=== PATIENT | female | born 1945 | race African-American/Black ===

== ENCOUNTER 2019-11-26 10:56 | Observation (INO) ==
[2019-11-26] MEDS ORDERED: NITROGLYCERIN 2% OINT 1 INCH/GM PACK TOP STA (11:26)
[2019-11-26] MEDS ORDERED: METOPROLOL TARTRATE 5 MG/5 ML VIAL IV STA (11:26)
[2019-11-26 11:31] LABS: Basophils # 0.1 10*3/uL (0.0-0.2); Basophils % 1.4 % (0.0-0.8); Eosinophils # 0.2 10*3/uL (0.0-0.87); Eosinophils % 2.8 % (0.00-10.9); Hematocrit 34.5 VOL% (35.7-47.0); Hemoglobin 10.7 GM/DL (12.0-16.0); Immature Granulocytes % 0.2 %; Immature Granulocytes Absolute 0.01 #; Lymphocytes # 1.4 10*3/uL (1.4-4.0); Lymphocytes % 21.2 % (21.3-54.2); Mean Corpuscular Volume 87.1 FL (87-102); Monocytes % 7.1 % (1.7-12.7); Neutrophils % 67.3 % (38.7-73.9); Platelet Count 371 T/CUMM (130-400); Red Blood Count 3.96 MC/CUMM (3.8-5.5); Red Cell Distribution Width 15.9 % (9.3-17.3); White Blood Count 6.5 T/CUMM (4-12)
[2019-11-26 11:51] LABS: Alanine Aminotransferase 15 U/L (13-56); Albumin 3.7 G/DL (3.4-5.0); Alkaline Phosphatase 169 U/L (45-117); Aspartate Amino Transferase 10 U/L (0-37); Bilirubin,Total < 0.39 MG/DL (0.2-1.0); Blood Urea Nitrogen 13 MG/DL (7-18); Calcium 9.3 MG/DL (8.5-10.1); Estimated Glom Filtration Rate 65 ML/MIN; Glucose 122 MG/DL (74-106); Osmolality,Calculated 286.8 MOS/KG (273-304); Total Protein 6.8 G/DL (6.4-8.3)
[2019-11-26] MEDS ORDERED: ONDANSETRON 4 MG/2 ML VIAL IV PRN (13:29)
[2019-11-26] MEDS ORDERED: GLUCAGON 1 MG VIAL IM PRN (13:29)
[2019-11-26] MEDS ORDERED: ACETAMINOPHEN 325 MG TABLET PO PRN (13:29)
[2019-11-26] MEDS ORDERED: DEXTROSE 50% 25 GM/50 ML VIAL IV PRN (13:29)
[2019-11-26] MEDS ORDERED: ENOXAPARIN 40 MG/0.4 ML SYRINGE SUBCUT SCH (13:30)
[2019-11-26 14:48] LABS: Risk Ratio 5.03; Thyroid Stimulating Hormone 1.29 uIU/ml (0.358-3.74); VLDL CHOLESTEROL 40.4 MG/DL
[2019-11-26] MEDS ORDERED: INFLUENZA VIRUS VACCINE 0.5 ML SYRINGE IM ONE (16:03)
[2019-11-26] MEDS: GABAPENTIN 100 MG CAPSULE PO SCH ×2 (17:12→21:31)
[2019-11-26] MEDS: INSULIN REGULAR 100 UNIT/ML SUBCUT SCH ×2 (17:43→21:30)
[2019-11-26] MEDS: MORPHINE 4 MG/1 ML VIAL IV PRN (20:10)
[2019-11-26] MEDS ORDERED: INSULIN GLARGINE 100 UNIT/ML SUBCUT SCH (21:00)
[2019-11-26] MEDS: metFORMIN 500 MG TABLET PO SCH (21:31)
[2019-11-26] MEDS: TICAGRELOR 90 MG TABLET PO SCH (21:31)
[2019-11-27] MEDS: MORPHINE 4 MG/1 ML VIAL IV PRN (01:49)
[2019-11-27 05:42] LABS: Basophils # 0.1 10*3/uL (0.0-0.2); Basophils % 1.6 % (0.0-0.8); Eosinophils # 0.2 10*3/uL (0.0-0.87); Eosinophils % 2.9 % (0.00-10.9); Hematocrit 31.3 VOL% (35.7-47.0); Immature Granulocytes % 0.5 %; Immature Granulocytes Absolute 0.03 #; Lymphocytes # 0.7 10*3/uL (1.4-4.0); Lymphocytes % 11.9 % (21.3-54.2); Mean Corpuscular HGB Conc 31.9 GM/DL (32-36); Mean Corpuscular Volume 86.5 FL (87-102); Mean Platelet Volume 9.9 FL (9.6-12.0); Monocytes % 7.5 % (1.7-12.7); Neutrophils % 75.6 % (38.7-73.9); Platelet Count 335 T/CUMM (130-400); Red Blood Count 3.62 MC/CUMM (3.8-5.5); Red Cell Distribution Width 15.9 % (9.3-17.3); White Blood Count 6.1 T/CUMM (4-12)
[2019-11-27 06:01] LABS: Albumin 3.1 G/DL (3.4-5.0); Bilirubin,Total 0.5 MG/DL (0.2-1.0); Calcium 9.5 MG/DL (8.5-10.1); Osmolality,Calculated 283.3 MOS/KG (273-304); Total Protein 6.5 G/DL (6.4-8.3)
[2019-11-27 08:33] VITALS: BP 122/74
[2019-11-27] MEDS ORDERED: CETIRIZINE 10 MG TABLET PO SCH (09:00)
[2019-11-27] MEDS ORDERED: ASPIRIN EC 81 MG TABLET PO SCH (09:00)
[2019-11-27] MEDS ORDERED: PANTOPRAZOLE 40 MG TABLET PO SCH (09:00)
[2019-11-27] MEDS ORDERED: LUBIPROSTONE 24 MCG CAPSULE PO SCH (09:00)
[2019-11-27] MEDS ORDERED: FERROUS SULFATE 325 MG TABLET PO SCH (09:00)
[2019-11-27] MEDS ORDERED: METOPROLOL SUCCINATE XL 25 MG TABLET PO SCH (09:00)
[2019-11-27] MEDS ORDERED: FUROSEMIDE 20 MG TABLET PO SCH (09:00)
[2019-11-27] MEDS ORDERED: OMEGA 3 ACID ETHYL ESTERS 1 GM CAPSULE PO SCH (09:00)
[2019-11-27] MEDS ORDERED: LOSARTAN 50 MG TABLET PO SCH (09:00)
[2019-11-27] MEDS ORDERED: POTASSIUM CHLORIDE 10 MEQ TABLET PO SCH (09:00)
[2019-11-27] MEDS: INSULIN REGULAR 100 UNIT/ML SUBCUT SCH (09:31)
[2019-11-27] MEDS: metFORMIN 500 MG TABLET PO SCH (09:32)
[2019-11-27] MEDS: GABAPENTIN 100 MG CAPSULE PO SCH (09:33)
[2019-11-27] MEDS: TICAGRELOR 90 MG TABLET PO SCH (09:34)
[2019-11-27] MEDS ORDERED: ATORVASTATIN 40 MG TABLET PO SCH (21:00)
== END 2019-11-27 11:40 | disposition home health service (06) ==
LOC: N.EDINP 10:56 → N.ED 10:56 → N.TELEN 14:27
PROVIDERS: ADMIT Internal Medicine; ATTEND Internal Medicine

== ENCOUNTER 2020-04-08 12:41 | Inpatient (IN) ==
[2020-04-08] MEDS ORDERED: PANTOPRAZOLE 40 MG VIAL IV STA (14:22)
[2020-04-08 15:10] LABS: Basophils # 0.1 10*3/uL (0.0-0.2); Basophils % 1.3 % (0.0-0.8); Eosinophils # 0.1 10*3/uL (0.0-0.87); Eosinophils % 1.8 % (0.00-10.9); Hematocrit 29.5 VOL% (35.7-47.0); Hemoglobin 8.7 GM/DL (12.0-16.0); Immature Granulocytes % 0.3 %; Immature Granulocytes Absolute 0.02 #; Lymphocytes # 1.6 10*3/uL (1.4-4.0); Lymphocytes % 20.4 % (21.3-54.2); Mean Corpuscular HGB Conc 29.5 GM/DL (32-36); Mean Platelet Volume 9.9 FL (9.6-12.0); Monocytes % 8.5 % (1.7-12.7); Neutrophils % 67.7 % (38.7-73.9); Platelet Count 372 T/CUMM (130-400); Red Blood Count 4.04 MC/CUMM (3.8-5.5); Red Cell Distribution Width 19.9 % (9.3-17.3); White Blood Count 7.8 T/CUMM (4-12)
[2020-04-08 15:25] LABS: PT Patient Result 10.8 SECS (9.8-11.9)
[2020-04-08 15:33] LABS: Albumin 3.9 G/DL (3.4-5.0); Bilirubin,Total 0.4 MG/DL (0.2-1.0); Calcium 9.5 MG/DL (8.5-10.1); Osmolality,Calculated 287.1 MOS/KG (273-304); Potassium 4.2 MMOL/L (3.5-5.1); Total Protein 7.6 G/DL (6.4-8.3)
[2020-04-08] MEDS ORDERED: DOCUSATE SODIUM 100 MG CAPSULE PO PRN (17:03)
[2020-04-08] MEDS ORDERED: ONDANSETRON 4 MG/2 ML VIAL IV PRN (17:03)
[2020-04-08] MEDS ORDERED: hydrALAZINE 20 MG/1 ML VIAL IV PRN (17:03)
[2020-04-08] MEDS ORDERED: NICOTINE 21 MG/24 HR PATCH TRANSDERM PRN (17:03)
[2020-04-08] MEDS ORDERED: DEXTROSE 50% 25 GM/50 ML VIAL IV PRN (17:03)
[2020-04-08] MEDS ORDERED: GLUCAGON 1 MG VIAL IM PRN (17:03)
[2020-04-08] MEDS ORDERED: MORPHINE 4 MG/1 ML VIAL IV PRN (17:42)
[2020-04-08 19:01] LABS: % Iron Saturation 8.1 % (18-50); Ferritin 9.3 ng/ml (8-252)
[2020-04-08 19:37] LABS: Vitamin B12 420 PG/ML (211-911)
[2020-04-08 20:35] LABS: Basophils # 0.1 10*3/uL (0.0-0.2); Basophils % 1.4 % (0.0-0.8); Eosinophils # 0.2 10*3/uL (0.0-0.87); Eosinophils % 2.7 % (0.00-10.9); Hematocrit 28.3 VOL% (35.7-47.0); Hemoglobin 8.1 GM/DL (12.0-16.0); Immature Granulocytes % 0.1 %; Immature Granulocytes Absolute 0.01 #; Lymphocytes # 1.8 10*3/uL (1.4-4.0); Lymphocytes % 26.3 % (21.3-54.2); Mean Corpuscular HGB Conc 28.6 GM/DL (32-36); Mean Corpuscular Volume 73.1 FL (87-102); Mean Platelet Volume 9.7 FL (9.6-12.0); Monocytes % 8.1 % (1.7-12.7); Neutrophils % 61.4 % (38.7-73.9); Platelet Count 355 T/CUMM (130-400); Red Blood Count 3.87 MC/CUMM (3.8-5.5)
[2020-04-08 21:34] LABS: Sedimentation Rate-Westergren 30 MM/HR (0-30)
[2020-04-08] MEDS: INSULIN LISPRO 100 UNIT/ML SUBCUT SCH (22:05)
[2020-04-08] MEDS: PANTOPRAZOLE 40 MG VIAL IV SCH (22:05)
[2020-04-08] MEDS: SODIUM CHLORIDE 0.9% 1,000 ML IV SCH (22:06)
[2020-04-08] MEDS: MICONAZOLE 2% CREAM 57 GM TUBE TOP SCH (22:06)
[2020-04-09 04:47] LABS: Basophils # 0.1 10*3/uL (0.0-0.2); Basophils % 1.7 % (0.0-0.8); Eosinophils # 0.2 10*3/uL (0.0-0.87); Eosinophils % 3.8 % (0.00-10.9); Hemoglobin 7.8 GM/DL (12.0-16.0); Immature Granulocytes % 0.3 %; Immature Granulocytes Absolute 0.02 #; Lymphocytes # 1.7 10*3/uL (1.4-4.0); Mean Corpuscular HGB Conc 28.9 GM/DL (32-36); Mean Corpuscular Volume 73.6 FL (87-102); Mean Platelet Volume 10.2 FL (9.6-12.0); Monocytes % 10.4 % (1.7-12.7); Neutrophils % 54.8 % (38.7-73.9); Platelet Count 322 T/CUMM (130-400); Red Blood Count 3.67 MC/CUMM (3.8-5.5); Red Cell Distribution Width 19.8 % (9.3-17.3); White Blood Count 5.9 T/CUMM (4-12)
[2020-04-09 05:05] LABS: Calcium 9.1 MG/DL (8.5-10.1); Osmolality,Calculated 283.4 MOS/KG (273-304); Potassium 4.2 MMOL/L (3.5-5.1)
[2020-04-09 05:08] LABS: Hypochromasia 1+
[2020-04-09 05:09] LABS: Microcytosis 1+; Platelet Estimate Normal; Target Cells Slight
[2020-04-09] MEDS ORDERED: MAGNESIUM SULF RIDER 2 GM in PREMIX 1 EACH IV ONE (07:42)
[2020-04-09] MEDS: PANTOPRAZOLE 40 MG VIAL IV SCH ×2 (08:06→20:32)
[2020-04-09] MEDS: INSULIN LISPRO 100 UNIT/ML SUBCUT SCH ×4 (08:12→20:33)
[2020-04-09 08:46] LABS: Bacteria,Urine Occasional /HPF (Few); Bilirubin,Urine Negative (Negative); Blood, Urine Negative (Negative); Glucose,Urine (UA) Negative (Negative); Ketones,Urine Negative (Negative); Nitrite,Urine Negative (Negative); Protein,Urine Negative; RBC,Urine 1 /HPF (0-4); Squamous Epithelial Cell,Urine Occasional /HPF (0-10); Urine Appearance CLEAR (Clear); Urine Color Yellow (Yellow); Urine Specific Gravity 1.012 (1.001-1.035); Urine Urobilinogen < 2.0 EU/DL (0.2-1.0); WBC,Urine <1 /HPF (0-6)
[2020-04-09] MEDS ORDERED: SODIUM CHLORIDE 0.9% 1,000 ML IV PRN (09:17)
[2020-04-09 11:05] LABS: Hemoglobin A1 (Alkaline) 68.8 % (96.5-98.5); Hemoglobin A2 (Alkaline) 2.8 % (1.5-3.5)
[2020-04-09 11:23] LABS: Hematocrit 28.7 VOL% (35.7-47.0); Hemoglobin 8.3 GM/DL (12.0-16.0)
[2020-04-09 12:08] LABS: Hemoglobin S (Alkaline) 28.4 %
[2020-04-09] MEDS: SODIUM CHLORIDE 0.9% 1,000 ML IV SCH ×2 (12:43→20:32)
[2020-04-09] MEDS: MICONAZOLE 2% CREAM 57 GM TUBE TOP SCH ×2 (12:43→20:32)
[2020-04-09 15:54] LABS: Hematocrit 25.6 VOL% (35.7-47.0); Hemoglobin 7.6 GM/DL (12.0-16.0)
[2020-04-09 21:51] LABS: Hematocrit 25.7 VOL% (35.7-47.0); Hemoglobin 7.4 GM/DL (12.0-16.0)
[2020-04-10 06:43] LABS: Basophils # 0.1 10*3/uL (0.0-0.2); Basophils % 1.7 % (0.0-0.8); Eosinophils # 0.2 10*3/uL (0.0-0.87); Eosinophils % 4.4 % (0.00-10.9); Hemoglobin 7.7 GM/DL (12.0-16.0); Immature Granulocytes % 0.4 %; Immature Granulocytes Absolute 0.02 #; Lymphocytes # 1.4 10*3/uL (1.4-4.0); Mean Corpuscular HGB Conc 29.6 GM/DL (32-36); Mean Corpuscular Volume 73.4 FL (87-102); Mean Platelet Volume 9.6 FL (9.6-12.0); Monocytes % 10.2 % (1.7-12.7); Neutrophils % 53.3 % (38.7-73.9); Platelet Count 321 T/CUMM (130-400); Red Blood Count 3.54 MC/CUMM (3.8-5.5); Red Cell Distribution Width 19.8 % (9.3-17.3); White Blood Count 4.8 T/CUMM (4-12)
[2020-04-10 06:52] LABS: Calcium 9.6 MG/DL (8.5-10.1); Osmolality,Calculated 279.4 MOS/KG (273-304); Potassium 4.1 MMOL/L (3.5-5.1)
[2020-04-10] MEDS ORDERED: MAGNESIUM SULF RIDER 2 GM in PREMIX 1 EACH IV ONE (06:59)
[2020-04-10 07:02] LABS: Hypochromasia 1+; Microcytosis 1+; Platelet Estimate Adequate
[2020-04-10] MEDS ORDERED: LACTATED RINGERS 1,000 ML IV SCH (08:00)
[2020-04-10] MEDS: INSULIN LISPRO 100 UNIT/ML SUBCUT SCH ×2 (08:02→15:49)
[2020-04-10] MEDS: SODIUM CHLORIDE 0.9% 1,000 ML IV SCH ×2 (08:03→17:10)
[2020-04-10] MEDS: PANTOPRAZOLE 40 MG VIAL IV SCH (08:12)
[2020-04-10] MEDS: MICONAZOLE 2% CREAM 57 GM TUBE TOP SCH (08:16)
[2020-04-10] MEDS: LACTULOSE 20 GM/30 ML UDCUP PO SCH ×2 (09:35→16:04)
[2020-04-10 10:59] LABS: Folate 18.9 NG/ML (5.38-24.0)
[2020-04-10] MEDS ORDERED: LIDOCAINE 2% 5 ML VIAL ONE (11:23)
[2020-04-10] MEDS ORDERED: ETOMIDATE 20 MG/10 ML VIAL IV ONE (11:24)
[2020-04-10] MEDS ORDERED: propofoL 200 MG/20 ML VIAL IV ONE (11:24)
[2020-04-10] MEDS ORDERED: DEXTROSE 50% 25 GM/50 ML VIAL IV PRN (13:10)
[2020-04-10] MEDS ORDERED: GLUCAGON 1 MG VIAL IM PRN (13:10)
[2020-04-10 16:11] VITALS: BP 195/86
== END 2020-04-10 17:02 | disposition home or self-care (01) | DRG 378 ==
LOC: N.ED 12:41 → N.EDINP 17:09 → N.TELEN 20:02
PROVIDERS: ADMIT Internal Medicine; ATTEND Internal Medicine

== ENCOUNTER 2021-09-08 07:53 | Inpatient (IN) ==
[2021-09-08] MEDS ORDERED: ONDANSETRON 4 MG/2 ML VIAL IV STA (08:19)
[2021-09-08 08:37] LABS: Basophils # 0.1 10*3/uL (0.0-0.2); Basophils % 0.8 % (0.0-0.8); Eosinophils # 0.1 10*3/uL (0.0-0.87); Eosinophils % 1.4 % (0.00-10.9); Hematocrit 26.9 VOL% (35.7-47.0); Hemoglobin 8.3 GM/DL (12.0-16.0); Immature Granulocytes % 0.3 %; Immature Granulocytes Absolute 0.03 #; Lymphocytes % 9.6 % (21.3-54.2); Mean Corpuscular HGB Conc 30.9 GM/DL (32-36); Mean Corpuscular Volume 85.1 FL (87-102); Mean Platelet Volume 9.4 FL (9.6-12.0); Monocytes # 0.5 10*3/uL (0.11-0.8); Monocytes % 5.3 % (1.7-12.7); Neutrophils % 82.6 % (38.7-73.9); Platelet Count 412 T/CUMM (130-400); Red Blood Count 3.16 MC/CUMM (3.8-5.5); Red Cell Distribution Width 16.7 % (9.3-17.3); White Blood Count 10.3 T/CUMM (4-12)
[2021-09-08 09:03] LABS: Alanine Aminotransferase 16 U/L (13-56); Albumin 3.3 G/DL (3.4-5.0); Alkaline Phosphatase 98 U/L (45-117); Aspartate Amino Transferase 13 U/L (0-37); Bilirubin,Total < 0.39 MG/DL (0.20-1.00); Blood Urea Nitrogen 8 MG/DL (7-18); Calcium 9.7 MG/DL (8.5-10.1); Carbon Dioxide 24 MMOL/L (21-32); Chloride 107 MMOL/L (98-107); Glucose 277 MG/DL (74-106); Osmolality,Calculated 282.7 MOS/KG (273-304); Potassium 4.2 MMOL/L (3.5-5.1); Sodium 138 MMOL/L (136-145); Total Protein 6.4 G/DL (6.4-8.2)
[2021-09-08 09:37] LABS: Bilirubin,Urine Negative (Negative); Blood, Urine Negative (Negative); Glucose,Urine (UA) >1000 mg/dL (Negative); Hyaline Casts,Urine 5 /LPF (0-3); Ketones,Urine Negative (Negative); Mucus,Urine Occasional /LPF (Occasional); Nitrite,Urine Negative (Negative); Protein,Urine Negative (Negative); RBC,Urine 1 /HPF (0-4); Urine Appearance Clear (Clear); Urine Color Yellow (Yellow); Urine Urobilinogen 0.2 eU/dL (<2.0)
[2021-09-08 10:08] LABS: Folate 13.43 NG/ML (5.38-24.0)
[2021-09-08] MEDS ORDERED: GLUCAGON 1 MG VIAL IM PRN (10:44)
[2021-09-08] MEDS ORDERED: DEXTROSE 10% 250 ML BAG IV PRN (10:44)
[2021-09-08] MEDS ORDERED: NITROGLYCERIN SL 0.4 MG TABLET SL PRN (10:50)
[2021-09-08] MEDS: INSULIN LISPRO 100 UNIT/ML SUBCUT SCH ×3 (13:08→20:14)
[2021-09-08] MEDS: SODIUM CHLORIDE 0.9% 1,000 ML IV SCH (13:55)
[2021-09-08] MEDS: HEPARIN 5,000 UNIT/1 ML VIAL SUBCUT SCH ×2 (14:35→21:12)
[2021-09-08] MEDS: cefTRIAXone 1,000 MG in SODIUM CHLORIDE 0.9% 100 ML IV SCH (14:35)
[2021-09-08] MEDS: metroNIDAZOLE INJ 500 MG/100 ML PREMIX IV SCH ×2 (15:20→23:00)
[2021-09-08] MEDS: MORPHINE 2 MG/1 ML SYRINGE IV PRN (19:39)
[2021-09-08] MEDS: ONDANSETRON 4 MG/2 ML VIAL IV PRN (19:48)
[2021-09-08] MEDS: PANTOPRAZOLE 40 MG TABLET PO SCH (21:11)
[2021-09-08] MEDS: ATORVASTATIN 10 MG TABLET PO SCH (21:11)
[2021-09-08] MEDS: INSULIN GLARGINE 100 UNIT/ML SUBCUT SCH (21:12)
[2021-09-09] MEDS: ONDANSETRON 4 MG/2 ML VIAL IV PRN (00:22)
[2021-09-09] MEDS: MORPHINE 2 MG/1 ML SYRINGE IV PRN ×3 (00:23→12:05)
[2021-09-09] MEDS: SODIUM CHLORIDE 0.9% 1,000 ML IV SCH ×3 (02:02→16:36)
[2021-09-09 05:33] LABS: Basophils # 0.1 10*3/uL (0.0-0.2); Basophils % 1.4 % (0.0-0.8); Eosinophils # 0.2 10*3/uL (0.0-0.87); Eosinophils % 3.2 % (0.00-10.9); Hematocrit 24.9 VOL% (35.7-47.0); Hemoglobin 7.7 GM/DL (12.0-16.0); Immature Granulocytes % 0.4 %; Immature Granulocytes Absolute 0.02 #; Lymphocytes # 1.4 10*3/uL (1.4-4.0); Lymphocytes % 25.1 % (21.3-54.2); Mean Corpuscular HGB Conc 30.9 GM/DL (32-36); Mean Corpuscular Volume 82.5 FL (87-102); Mean Platelet Volume 9.1 FL (9.6-12.0); Monocytes # 0.5 10*3/uL (0.11-0.8); Monocytes % 8.7 % (1.7-12.7); Neutrophils % 61.2 % (38.7-73.9); Platelet Count 355 T/CUMM (130-400); Red Blood Count 3.02 MC/CUMM (3.8-5.5); Red Cell Distribution Width 16.5 % (9.3-17.3); White Blood Count 5.7 T/CUMM (4-12)
[2021-09-09 06:03] LABS: Calcium 9.1 MG/DL (8.5-10.1); Osmolality,Calculated 279.3 MOS/KG (273-304); Potassium 3.8 MMOL/L (3.5-5.1); Risk Ratio 2.75; Thyroid Stimulating Hormone 1.66 uIU/ml (0.358-3.74); VLDL Cholesterol 37.2 MG/DL
[2021-09-09] MEDS: HEPARIN 5,000 UNIT/1 ML VIAL SUBCUT SCH ×3 (06:26→21:10)
[2021-09-09] MEDS: metroNIDAZOLE INJ 500 MG/100 ML PREMIX IV SCH ×2 (06:27→18:01)
[2021-09-09] MEDS: INSULIN LISPRO 100 UNIT/ML SUBCUT SCH ×4 (08:59→21:09)
[2021-09-09] MEDS: PANTOPRAZOLE 40 MG TABLET PO SCH ×2 (09:00→21:09)
[2021-09-09] MEDS: ASPIRIN EC 81 MG TABLET PO SCH (09:00)
[2021-09-09] MEDS: amLODIPine 10 MG TABLET PO SCH (09:00)
[2021-09-09] MEDS: ISOSORBIDE MONONITRATE 30 MG TABLET PO SCH (09:00)
[2021-09-09 16:23] LABS: Hemoglobin 7.1 GM/DL (12.0-16.0)
[2021-09-09] MEDS: ATORVASTATIN 10 MG TABLET PO SCH (21:09)
[2021-09-09] MEDS: INSULIN GLARGINE 100 UNIT/ML SUBCUT SCH (21:10)
[2021-09-09] MEDS: cefTRIAXone 1,000 MG in SODIUM CHLORIDE 0.9% 100 ML IV SCH (22:42)
[2021-09-10] MEDS: metroNIDAZOLE INJ 500 MG/100 ML PREMIX IV SCH ×3 (02:59→21:03)
[2021-09-10] MEDS: SODIUM CHLORIDE 0.9% 1,000 ML IV SCH ×2 (03:00→21:05)
[2021-09-10] MEDS: HEPARIN 5,000 UNIT/1 ML VIAL SUBCUT SCH (06:21)
[2021-09-10] MEDS ORDERED: SODIUM CHLORIDE 0.9% 1,000 ML IV PRN (07:31)
[2021-09-10 08:12] LABS: Basophils # 0.1 10*3/uL (0.0-0.2); Basophils % 2.2 % (0.0-0.8); Eosinophils # 0.2 10*3/uL (0.0-0.87); Eosinophils % 5.1 % (0.00-10.9); Hematocrit 24.7 VOL% (35.7-47.0); Hemoglobin 7.5 GM/DL (12.0-16.0); Immature Granulocytes % 0.3 %; Immature Granulocytes Absolute 0.01 #; Lymphocytes % 26.6 % (21.3-54.2); Mean Corpuscular HGB Conc 30.4 GM/DL (32-36); Monocytes # 0.4 10*3/uL (0.11-0.8); Monocytes % 9.4 % (1.7-12.7); Neutrophils % 56.4 % (38.7-73.9); Platelet Count 342 T/CUMM (130-400); Red Blood Count 2.94 MC/CUMM (3.8-5.5); Red Cell Distribution Width 16.3 % (9.3-17.3); White Blood Count 3.7 T/CUMM (4-12)
[2021-09-10] MEDS: PANTOPRAZOLE 40 MG TABLET PO SCH ×2 (08:12→21:04)
[2021-09-10] MEDS: amLODIPine 10 MG TABLET PO SCH (08:12)
[2021-09-10] MEDS: ISOSORBIDE MONONITRATE 30 MG TABLET PO SCH (08:12)
[2021-09-10] MEDS: ASPIRIN EC 81 MG TABLET PO SCH (08:12)
[2021-09-10] MEDS: ONDANSETRON 4 MG/2 ML VIAL IV PRN (08:12)
[2021-09-10 08:24] LABS: Potassium 3.9 MMOL/L (3.5-5.1)
[2021-09-10] MEDS: INSULIN LISPRO 100 UNIT/ML SUBCUT SCH ×4 (09:34→21:05)
[2021-09-10] MEDS ORDERED: MAGNESIUM SULF RIDER 2 GM/50 ML PREMIX IV ONE (11:00)
[2021-09-10] MEDS: ATORVASTATIN 10 MG TABLET PO SCH (21:04)
[2021-09-10] MEDS: INSULIN GLARGINE 100 UNIT/ML SUBCUT SCH (21:05)
[2021-09-10] MEDS: cefTRIAXone 1,000 MG in SODIUM CHLORIDE 0.9% 100 ML IV SCH (22:21)
[2021-09-11] MEDS: metroNIDAZOLE INJ 500 MG/100 ML PREMIX IV SCH (04:24)
[2021-09-11] MEDS: SODIUM CHLORIDE 0.9% 1,000 ML IV SCH ×3 (06:07→14:52)
[2021-09-11 06:29] LABS: Basophils # 0.1 10*3/uL (0.0-0.2); Basophils % 1.9 % (0.0-0.8); Eosinophils # 0.2 10*3/uL (0.0-0.87); Eosinophils % 4.5 % (0.00-10.9); Hematocrit 30.4 VOL% (35.7-47.0); Hemoglobin 9.6 GM/DL (12.0-16.0); Immature Granulocytes % 0.4 %; Immature Granulocytes Absolute 0.02 #; Mean Corpuscular HGB Conc 31.6 GM/DL (32-36); Mean Corpuscular Volume 85.9 FL (87-102); Mean Platelet Volume 9.2 FL (9.6-12.0); Monocytes # 0.5 10*3/uL (0.11-0.8); Monocytes % 10.1 % (1.7-12.7); Neutrophils % 62.1 % (38.7-73.9); Platelet Count 311 T/CUMM (130-400); Red Blood Count 3.54 MC/CUMM (3.8-5.5); Red Cell Distribution Width 16.6 % (9.3-17.3); White Blood Count 4.7 T/CUMM (4-12)
[2021-09-11] MEDS: MORPHINE 2 MG/1 ML SYRINGE IV PRN (06:30)
[2021-09-11 06:36] LABS: Calcium 9.1 MG/DL (8.5-10.1); Osmolality,Calculated 282.1 MOS/KG (273-304); Potassium 3.5 MMOL/L (3.5-5.1)
[2021-09-11 07:00] LABS: Platelet Estimate Normal
[2021-09-11] MEDS ORDERED: MAGNESIUM SULF RIDER 2 GM/50 ML PREMIX IV ONE (07:34)
[2021-09-11] MEDS: INSULIN LISPRO 100 UNIT/ML SUBCUT SCH ×2 (08:17→14:52)
[2021-09-11] MEDS: ASPIRIN EC 81 MG TABLET PO SCH (08:18)
[2021-09-11] MEDS: ISOSORBIDE MONONITRATE 30 MG TABLET PO SCH (08:18)
[2021-09-11] MEDS: PANTOPRAZOLE 40 MG TABLET PO SCH (08:18)
[2021-09-11] MEDS: amLODIPine 10 MG TABLET PO SCH (08:18)
[2021-09-11] MEDS: ONDANSETRON 4 MG/2 ML VIAL IV PRN (08:19)
[2021-09-11 13:25] VITALS: BP 137/61
[2021-09-11] MEDS ORDERED: metroNIDAZOLE 500 MG TABLET PO SCH (15:00)
== END 2021-09-11 14:47 | disposition home or self-care (01) | DRG 392 ==
LOC: N.ED 07:53 → N.EDINP 10:44 → SUATTDRO 10:44 → N.5E 11:08
PROVIDERS: ADMIT Internal Medicine; ATTEND Internal Medicine